=== PATIENT | male | born 2000 | race Caucasian/White ===

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

== ENCOUNTER 2022-09-12 10:20 | Inpatient (IN) | payer OTHER ==
[2022-09-12 12:43] LABS: INR 1.36 (0.83-1.09); PROTHROMBIN TIME (PATIENT) 15.7 SEC (9.7-13.0)
[2022-09-12 12:49] LABS: HEMATOCRIT 30.9 % (35.4-49); HEMOGLOBIN 10.7 G/dL (11.7-16.9); MCHC 34.5 g/dl (32.0-35.9); PLATELET COUNT 174.1 10^3/uL (134-434); RBC 2.45 10^6/uL (4.00-5.60); RDW 14.2 % (11.9-15.9); WHITE BLOOD COUNT 3.9 10^3/uL (4.0-10.8)
[2022-09-12 12:55] LABS: ALBUMIN 3.7 g/dl (3.4-5.0); BILIRUBIN,TOTAL 1.5 mg/dl (0.2-1); CALCIUM 8.6 mg/dl (8.5-10); CREATININE 0.8 mg/dl (0.55-1.3); POTASSIUM 4.1 mmol/L (3.5-5.1); TOT PROT 6.6 g/dl (6.4-8.2)
[2022-09-12 13:16] LABS: MCH 43.5 pg (25.7-33.7)
[2022-09-12] MEDS ORDERED: HEPARIN NA (PORCINE) 5,000 UNITS/ML 1ML VIAL IVPUSH ONE (14:43)
[2022-09-12] MEDS ORDERED: HEPARIN NA (PORCINE) 5,000 UNITS/ML 1ML VIAL IVPUSH PRN ×2 (14:43)
[2022-09-12] MEDS: HEPARIN INFUSION - 25,000 UNITS/500 ML INFUS.BAG IVPB SCH ×2 (14:45→23:37)
[2022-09-12] MEDS ORDERED: HEPARIN INFUSION - 25,000 UNITS/500 ML INFUS.BAG IVPB ONE (15:33)
[2022-09-12] MEDS ORDERED: HEPARIN NA (PORCINE) 5,000 UNITS/ML 1ML VIAL ONE (15:33)
[2022-09-12 19:01] VITALS: RESP 18; BMI 29.7
[2022-09-12] MEDS ORDERED: CENOBAMATE 150 MG PO SCH (22:00)
[2022-09-12] MEDS: levETIRAcetam 500 MG TABLET (FP) PO SCH (22:03)
[2022-09-13 07:17] LABS: HEMATOCRIT 24.8 % (35.4-49); HEMOGLOBIN 9.2 GM/dL (11.7-16.9); MCHC 37.2 g/dl (32.0-35.9); MEAN CELL VOLUME 120.2 fl (80-96); MEAN PLT VOLUME 8.4 fl (7.5-11.1); PLATELET COUNT 180 10^3/uL (134-434); RBC 2.06 M/mm3 (4.00-5.60); RDW 15.9 % (11.9-15.9); WHITE BLOOD COUNT 4.2 K/mm3 (4.0-10.0)
[2022-09-13 07:18] LABS: MCH 44.8 pg (25.7-33.7)
[2022-09-13 07:25] LABS: POTASSIUM 3.6 mmol/L (3.5-5.1)
[2022-09-13 07:27] LABS: CALCIUM 8.5 mg/dL (8.5-10.1)
[2022-09-13 07:28] LABS: ALBUMIN 3.2 g/dl (3.4-5.0); MAGNESIUM 1.9 mg/dL (1.8-2.4)
[2022-09-13 07:31] LABS: CREATININE 0.7 mg/dL (0.55-1.3); PHOSPHOROUS 3.3 mg/dL (2.5-4.9)
[2022-09-13 07:32] LABS: BILIRUBIN,TOTAL 1.1 mg/dL (0.2-1); TOT PROT 5.8 g/dl (6.4-8.2)
[2022-09-13 09:08] VITALS: BP 105/55; PULSE 70; TEMP 97.5
[2022-09-13] MEDS ORDERED: TOPIRAMATE 100 MG TABLET PO SCH (10:00)
[2022-09-13 10:18] LABS: ANISOCYTOSIS 2+; MACROCYTOSIS 2+
[2022-09-13] MEDS ORDERED: ENOXAPARIN NA (PORCINE) 100 MG/1 ML DISP.SYRIN SQ ONE (10:30)
[2022-09-13] MEDS: levETIRAcetam 500 MG TABLET (FP) PO SCH (12:33)
[2022-09-19 15:10] LABS: HEXAGONAL PHASE PHOSPHOLIPID 6 sec (0-11)
== END 2022-09-13 13:15 | disposition home or self-care (01) | DRG 134 ==
LOC: FER 10:20 → UNDOADMIN 14:57 → FM/S 14:57
PROVIDERS: ADMIT Internal Medicine; ATTEND Internal Medicine
DX: I26.99 Other pulmonary embolism without acute cor pulmonale (principal); I82.4Z2 Acute embolism and thrombosis of unspecified deep veins of left distal lower extremity; F90.9 Attention-deficit hyperactivity disorder, unspecified type; F84.0 Autistic disorder; G40.909 Epilepsy, unspecified, not intractable, without status epilepticus; I82.402 Acute embolism and thrombosis of unspecified deep veins of left lower extremity
CPT/HCPCS: 0241U-QW; 36415; 71275-TC; 80053; 82272; 82306; 82746; 83735; 84100; 85025; 85027; 85610; 85613; 85730; 85732; 93306-TC; 93971-TC; 99291; J1644; Q9967

== ENCOUNTER 2024-03-05 23:32 | Emergency (ER) | payer OTHER ==
[2024-03-05 23:40] VITALS: RESP 18; BMI 29.7
[2024-03-06 00:33] VITALS: BP 117/77; PULSE 83; TEMP 97.3
[2024-03-06 01:07] LABS: BASO % 0.7 % (0-2.0); EOS % 0.5 % (0-4.5); HEMATOCRIT 46.6 % (35.4-49); HEMOGLOBIN 15.8 GM/dL (11.7-16.9); LYMPH % 34.4 % (8-40); MCHC 33.9 g/dl (32.0-35.9); MEAN CELL VOLUME 94.4 fl (80-96); MEAN PLT VOLUME 8.6 fl (7.5-11.1); MONO % 7.9 % (3.8-10.2); NEUT % 56.5 % (42.8-82.8); PLATELET COUNT 261 10^3/uL (134-434); RBC 4.93 M/mm3 (4.00-5.60); RDW 13.7 % (11.9-15.9); WHITE BLOOD COUNT 5.4 K/mm3 (4.0-10.0)
[2024-03-06 01:23] LABS: INR 0.95 (0.83-1.09); PROTHROMBIN TIME (PATIENT) 10.7 SEC (9.7-13.0)
[2024-03-06 01:35] LABS: POTASSIUM 3.9 mmol/L (3.5-5.1)
[2024-03-06 01:38] LABS: ALBUMIN 4.4 g/dl (3.4-5.0); BLOOD UREA NITROGEN 12.9 mg/dL (7-18)
[2024-03-06 01:41] LABS: CREATININE 1.3 mg/dL (0.55-1.3)
[2024-03-06 01:42] LABS: BILIRUBIN,TOTAL 0.7 mg/dL (0.2-1)
[2024-03-06 01:43] LABS: TOT PROT 7.1 g/dl (6.4-8.2)
== END 2024-03-06 01:12 | disposition home or self-care (01) ==
LOC: FER 23:32
DX: R26.89 Other abnormalities of gait and mobility (principal); M79.662 Pain in left lower leg
CPT/HCPCS: 36415; 80053; 85025; 85379; 85610; 93971-TC; 99284-25